=== PATIENT | female | born 1975 | race Two or more races ===

== ENCOUNTER 2017-12-08 10:04 | Emergency (ER) | payer BC ==
[~2017-12-08] VITALS: Ht 162.6 cm; Wt 72.6 kg
--- NOTE | 2017-12-08 10:04 | NUR ---
LOWER BACK PAIN SINCE MONDAY, LOWER ABDOMINAL PAIN SINCE MONDAY. DENIES N/V. NAD NOTED. PT AAO X4, AMB WITH STEADY GAIT. RR EVEN AND UNLABORED. PENDING MD BOGGS.
[2017-12-08] MEDS ORDERED: ONDANSETRON HCL/PF 4 MG/2 ML VIAL IVP ONE (11:00)
[2017-12-08] MEDS ORDERED: IV NS 0.9% 1,000 ML BAG IV ONE (11:00)
[2017-12-08] MEDS ORDERED: MORPHINE SULFATE INJ 2 MG/ML DISP.SYRIN IV ONE (11:00)
[2017-12-08 11:04] LABS: APPEARANCE,URINE Clear (CLEAR); BASOPHILS % (AUTO) 0.7 % (0.0-2.0); BILIRUBIN,URINE Negative (NEGATIVE); BLOOD, URINE Small Ery/uL (NEGATIVE); COLOR,URINE Light yellow (YELLOW); EOSINOPHILS # (AUTO) 0.3 /CMM (0.0-0.7); EOSINOPHILS % (AUTO) 4.2 % (0.0-6.0); HEMATOCRIT 38 % (33-45); HEMOGLOBIN 12.3 g/dL (11.5-14.8); KETONES,URINE Negative (NEGATIVE); LEUKOCYTE ESTERASE ,URINE Negative (NEGATIVE); LYMPHOCYTES % (AUTO) 30.6 % (20.0-44.0); MEAN CORPUSCULAR HEMOGLOBIN 25 PG (26.0-33.0); MEAN CORPUSCULAR HGB CONC 33 g/dl (31.0-36.0); MEAN CORPUSCULAR VOLUME 76 fL (82-100); MONOCYTES # (AUTO) 0.4 /CMM (0.1-1.30); MONOCYTES % (AUTO) 6.3 % (2.0-12.0); NEUTROPHILS # (AUTO) 3.9 /CMM (1.8-8.9); NEUTROPHILS % (AUTO) 58.2 % (43.0-81.0); NITRITE, URINE Negative (NEGATIVE); PH,URINE 6.5 (5.0-8.0); PLATELET COUNT (AUTO) 345 /CMM (150-450); PROTEIN,URINE Negative (NEGATIVE); RDW COEFFICIENT OF VARIATION 17.3 (11.5-15.0); RED BLOOD CELL COUNT(AUTO) 4.93 MIL/uL (4.0-5.2); UGLUCOSE Negative (NEGATIVE); UROBILINOGEN,URINE 0.2 EU/dL (0.2); WHITE BLOOD COUNT (AUTO) 6.6 K/uL (4.3-11.0)
[2017-12-08 11:19] LABS: BACTERIA,URINE Few /HPF (None Seen); CALCIUM, SERUM 8.9 mg/dL (8.5-10.1); CREATININE 0.8 mg/dL (0.6-1.3); POTASSIUM 4.1 mmol/L (3.5-5.1); SQUAMOUS EPITHELIAL CELL,UR Few /HPF (None Seen)
[2017-12-08] MEDS ORDERED: ONDANSETRON HCL/PF 4 MG/2 ML VIAL ONE (11:19)
[2017-12-08] MEDS ORDERED: MORPHINE SULFATE INJ 4 MG/ML DISP.SYRIN ONE (11:20)
[2017-12-08 11:25] LABS: ALBUMIN 3.6 g/dL (3.4-5.0); BILIRUBIN,DIRECT 0.1 mg/dL (0.0-0.2); BILIRUBIN,TOTAL 0.4 mg/dL (0.2-1.0); TOTAL PROTEIN, SERUM 7.9 g/dL (6.4-8.2)
--- NOTE | 2017-12-08 14:00 | NUR ---
REPORT REC'D FROM MARLA FOR [facility].
--- NOTE | 2017-12-08 14:50 | NUR ---
PT AMBULATED TO THE BATHROOM WITH A STEADY GAIT.
--- NOTE | 2017-12-08 14:55 | NUR ---
TRANS VAG US STARTED. Female haircutter accompanied female patient for US TECH.
--- NOTE | 2017-12-08 15:21 | NUR ---
TRANS VAG US FINISHED. Female veterinarian poultry accompanied female patient for US TECH.
--- NOTE | 2017-12-08 16:06 | NUR ---
PT APPEARS TO BE RESTING COMFORTABLY.
--- NOTE | 2017-12-08 16:49 | NUR ---
PT WAS INSTRUCTED NOT TO DRIVE HOME. PT IS CALLING HER AND WILL WAIT FOR P/U IN THE LOBBY.
--- NOTE | 2017-12-08 16:49 | NUR ---
IV removed. Catheter intact and site benign. Pressure and 4x4 applied to site. No bleeding noted.Patient discharged to home in stable condition. Written and verbal after care instructions given. Patient verbalizes understanding of instruction AND RX. PT REC'D A COPY OF THE LABS, AND RADIOLOGY FINDINGS. VSS. PT AMBULATED OUT WITH A STEADY GAIT.
[2017-12-08 16:51] VITALS: BP 125/78
== END 2017-12-08 16:53 | disposition home or self-care (01) ==
LOC: ER 10:06
DX: N83.209 Unspecified ovarian cyst, unspecified side (principal); R10.2 Pelvic and perineal pain
CPT/HCPCS: 36415; 74176; 76856; 80048; 80076; 81001; 83690; 84702; 84703; 85025; 96361; 96374; 96375; 99285; A4606; J2270; J2405; J7030; Z7610; 81000-TC

== ENCOUNTER 2019-08-05 11:57 | Inpatient (IN) | payer BC ==
[~2019-08-05] VITALS: Ht 162.6 cm; Wt 71.3 kg
[2019-08-05 12:36] LABS: BASOPHILS % (AUTO) 0.7 % (0.0-2.0); EOSINOPHILS % (AUTO) 3.7 % (0.0-6.0); HEMATOCRIT 43 % (33-45); HEMOGLOBIN 14.3 g/dL (11.5-14.8); LYMPHOCYTES # (AUTO) 2.2 /CMM (0.8-4.8); LYMPHOCYTES % (AUTO) 39.7 % (20.0-44.0); MEAN CORPUSCULAR HGB CONC 33 g/dl (31.0-36.0); MEAN CORPUSCULAR VOLUME 90 fL (82-100); MONOCYTES # (AUTO) 0.4 /CMM (0.1-1.30); MONOCYTES % (AUTO) 7.6 % (2.0-12.0); NEUTROPHILS # (AUTO) 2.6 /CMM (1.8-8.9); NEUTROPHILS % (AUTO) 48.3 % (43.0-81.0); PLATELET COUNT (AUTO) 238 /CMM (150-450); RED BLOOD CELL COUNT(AUTO) 4.81 MIL/uL (4.0-5.2); WHITE BLOOD COUNT (AUTO) 5.4 K/uL (4.3-11.0)
[2019-08-05] MEDS ORDERED: IOHEXOL-350 100 ML VIAL IV ONE (12:36)
[2019-08-05 12:50] LABS: CHOLESTEROL 214 mg/dL (<200); HDL CHOLESTEROL 43 mg/dL (40-60); LDL 127 mg/dL (0-99); TRIGLYCERIDES 209 mg/dL (30-150)
[2019-08-05 12:53] LABS: CALCIUM, SERUM 8.8 mg/dL (8.5-10.1); CARBON DIOXIDE 27 mmol/L (21-32); CHLORIDE 103 mmol/L (98-107); CREATININE 0.9 mg/dL (0.6-1.3); GLUCOSE 151 mg/dL (74-106); POTASSIUM 3.6 mmol/L (3.5-5.1); SODIUM SERUM 137 mmol/L (136-145); UREA NITROGEN, BLOOD 15 mg/dL (7-18)
[2019-08-05 15:29] VITALS: BP 119/76
[2019-08-05] MEDS ORDERED: hydrALAZINE HCL IV 20 MG VIAL IV PRN (15:30)
[2019-08-05] MEDS ORDERED: MORPHINE SULFATE INJ 2 MG/ML DISP.SYRIN IV PRN (15:30)
[2019-08-05] MEDS ORDERED: ZOLPIDEM TARTRATE 5 MG TABLET PO PRN (15:30)
[2019-08-05] MEDS ORDERED: ONDANSETRON HCL/PF 4 MG/2 ML VIAL IV PRN (16:00)
[2019-08-05] MEDS: ACETAMINOPHEN 325 MG TABLET PO PRN (16:29)
[2019-08-05 20:00] VITALS: BP 109/68
[2019-08-06] VITALS: BP 113/72
[2019-08-06 01:28] LABS: APPEARANCE,URINE SL CLOUDY (CLEAR); BILIRUBIN,URINE NEGATIVE (NEGATIVE); BLOOD, URINE NEGATIVE Ery/uL (NEGATIVE); COLOR,URINE YELLOW (YELLOW); KETONES,URINE NEGATIVE (NEGATIVE); LEUKOCYTE ESTERASE ,URINE NEGATIVE (NEGATIVE); NITRITE, URINE NEGATIVE (NEGATIVE); PROTEIN,URINE NEGATIVE (NEGATIVE); UGLUCOSE NEGATIVE (NEGATIVE); UROBILINOGEN,URINE 0.2 EU/dL (0.2)
[2019-08-06 04:00] VITALS: BP 103/71
[2019-08-06 04:21] VITALS: BP 103/71
[2019-08-06 06:56] LABS: BASOPHILS % (AUTO) 0.5 % (0.0-2.0); EOSINOPHILS % (AUTO) 3.4 % (0.0-6.0); HEMATOCRIT 43 % (33-45); HEMOGLOBIN 14.2 g/dL (11.5-14.8); LYMPHOCYTES # (AUTO) 2.6 /CMM (0.8-4.8); MEAN CORPUSCULAR HGB CONC 33 g/dl (31.0-36.0); MEAN CORPUSCULAR VOLUME 90 fL (82-100); MONOCYTES # (AUTO) 0.4 /CMM (0.1-1.30); MONOCYTES % (AUTO) 7.3 % (2.0-12.0); NEUTROPHILS # (AUTO) 2.4 /CMM (1.8-8.9); NEUTROPHILS % (AUTO) 42.8 % (43.0-81.0); PLATELET COUNT (AUTO) 218 /CMM (150-450); WHITE BLOOD COUNT (AUTO) 5.6 K/uL (4.3-11.0)
[2019-08-06 07:22] LABS: CALCIUM, SERUM 8.5 mg/dL (8.5-10.1); CREATININE 0.8 mg/dL (0.6-1.3); POTASSIUM 4.2 mmol/L (3.5-5.1)
[2019-08-06 08:00] VITALS: BP 109/77
[2019-08-06] MEDS: ASPIRIN EC 325 MG TABLET.DR PO SCH (10:00)
[2019-08-06] MEDS: PANTOPRAZOLE 40 MG TABLET.DR PO SCH (10:00)
[2019-08-06] MEDS: ATORVASTATIN 10 MG TABLET PO SCH (10:00)
[2019-08-06 16:00] VITALS: BP 131/73
[2019-08-06 20:00] VITALS: BP 114/69
[2019-08-06] MEDS: ACETAMINOPHEN 325 MG TABLET PO PRN (20:43)
[2019-08-07] VITALS: BP 96/54
[2019-08-07 04:00] VITALS: BP 102/66
[2019-08-07 06:30] LABS: BASOPHILS % (AUTO) 0.5 % (0.0-2.0); EOSINOPHILS % (AUTO) 3.2 % (0.0-6.0); HEMATOCRIT 45 % (33-45); HEMOGLOBIN 14.5 g/dL (11.5-14.8); LYMPHOCYTES # (AUTO) 2.5 /CMM (0.8-4.8); LYMPHOCYTES % (AUTO) 46.4 % (20.0-44.0); MEAN CORPUSCULAR HGB CONC 33 g/dl (31.0-36.0); MEAN CORPUSCULAR VOLUME 90 fL (82-100); MONOCYTES # (AUTO) 0.4 /CMM (0.1-1.30); MONOCYTES % (AUTO) 7.5 % (2.0-12.0); NEUTROPHILS # (AUTO) 2.3 /CMM (1.8-8.9); NEUTROPHILS % (AUTO) 42.4 % (43.0-81.0); PLATELET COUNT (AUTO) 231 /CMM (150-450); RED BLOOD CELL COUNT(AUTO) 4.97 MIL/uL (4.0-5.2); WHITE BLOOD COUNT (AUTO) 5.4 K/uL (4.3-11.0)
[2019-08-07 06:48] LABS: CALCIUM, SERUM 8.9 mg/dL (8.5-10.1); CREATININE 0.8 mg/dL (0.6-1.3); MAGNESIUM 2.2 mg/dL (1.8-2.4); PHOSPHORUS 4.2 mg/dL (2.5-4.9); POTASSIUM 4.2 mmol/L (3.5-5.1)
[2019-08-07 08:00] VITALS: BP 109/72
[2019-08-07] MEDS: ATORVASTATIN 10 MG TABLET PO SCH (08:50)
[2019-08-07] MEDS: ASPIRIN EC 325 MG TABLET.DR PO SCH (08:51)
[2019-08-07] MEDS: PANTOPRAZOLE 40 MG TABLET.DR PO SCH (08:51)
[2019-08-07] MEDS ORDERED: ATOR10TA PO (10:59)
[2019-08-07] MEDS ORDERED: ASPI-869 PO (10:59)
[2019-08-07 12:00] VITALS: BP 111/68
== END 2019-08-07 13:30 | disposition home or self-care (01) | DRG 69 ==
LOC: ER 12:01 → MED 14:32 → TELE 15:08
PROVIDERS: ADMIT Nurse Practitioner Acute Care; ATTEND Registered Nurse
DX: G45.9 Transient cerebral ischemic attack, unspecified (principal); E78.5 Hyperlipidemia, unspecified; R73.9 Hyperglycemia, unspecified; G43.909 Migraine, unspecified, not intractable, without status migrainosus; R29.810 Facial weakness; B34.9 Viral infection, unspecified; R82.6 Abnormal urine levels of substances chiefly nonmedicinal as to source; R29.700 NIHSS score 0
CPT/HCPCS: 36415; 70450-TC; 70496-TC; 70498-TC; 70551-TC; 71045-TC; 80048-TC; 80061-TC; 80305; 81000-TC; 82962-TC; 83735-TC; 84100-TC; 84443-TC; 84484-TC; 84703-TC; 85025-TC; 85652-TC; 85730-TC; 87081-TC; 92526; 92611-TC; 97116-TC; 97530-TC; 97535-TC; G0378; Q9967

== ENCOUNTER 2019-08-09 10:00 | Outpatient (CLI) | payer BC ==
[2019-08-09 10:00] VITALS: BP 123/71
[~2019-08-09 10:00] MED LIST: ASPI-869 PO; ATOR10TA PO
== END 2019-08-09 23:59 | disposition home or self-care (01) ==
LOC: MSC 10:00
PROVIDERS: ATTEND Internal Medicine
DX: R53.1 Weakness (principal); R53.81 Other malaise; R51 Headache; R73.9 Hyperglycemia, unspecified; E78.5 Hyperlipidemia, unspecified; H02.402 Unspecified ptosis of left eyelid